=== PATIENT | female | born 1950 | race Caucasian/White ===

== ENCOUNTER 2023-07-22 11:20 | Emergency (ER) | payer MEDICARE, BC ==
[~2023-07-22] VITALS: Ht 162.6 cm; Wt 65.0 kg
[2023-07-22] MEDS: NS 500 ML IV ONE (11:56)
[2023-07-22 12:00] LABS: BASO # 0.1 10^3/uL (0.0-0.2); BASO % 0.8 % (0.0-1.0); EOS # 0.1 10^3/uL (0.0-0.5); EOS % 0.9 % (0.0-3.0); HEMATOCRIT 39.3 % (36.0-47.0); HEMOGLOBIN 13.3 g/dl (12.0-15.5); LYMPH # 1.4 10^3/uL (1.5-5.0); LYMPH % 20.5 % (24.0-44.0); MEAN CORPUSCULAR HGB CONC 33.8 g/dl (32.0-36.5); MEAN CORPUSCULAR VOLUME 91.6 fl (80.0-96.0); MONO # 0.4 10^3/uL (0.0-0.8); MONO % 6.5 % (2.0-8.0); NEUTROPHILS # 4.7 10^3/uL (1.5-8.5); NEUTROPHILS % 70.4 % (36.0-66.0); PLATELET COUNT, AUTOMATED 251 10^3/uL (150-450); RED BLOOD COUNT 4.29 10^6/uL (4.00-5.40); WHITE BLOOD COUNT 6.6 10^3/uL (4.0-10.0)
[2023-07-22] MEDS ORDERED: ISOVUE-370 76% 100ML VIAL As Ordered ONE (12:06)
[2023-07-22 12:12] LABS: INR 1.24; PARTIAL THROMBOPLASTIN TIME 35.2 SECONDS (24.8-34.2); PROTHROMBIN TIME 15.3 SECONDS (12.5-14.5)
[2023-07-22 12:32] LABS: LIPASE 46 U/L (12-53)
[2023-07-22 12:34] LABS: ALBUMIN 4.2 G/DL (3.2-5.2); ALKALINE PHOSPHATASE 92 U/L (46-116); ALT/SGPT 18 U/L (7.0-40); AMYLASE 51 U/L (30-118); AST/SGOT 14 U/L (<34); BILIRUBIN,DIRECT 0.2 MG/DL (<0.4); BILIRUBIN,TOTAL 0.7 MG/DL (0.3-1.2); BLOOD UREA NITROGEN 18 MG/DL (9-23); CALCIUM LEVEL 9.8 MG/DL (8.3-10.6); CARBON DIOXIDE LEVEL 27 MMOL/L (20-31); CHLORIDE LEVEL 104 MMOL/L (98-107); GLOMERULAR FILTRATION RATE > 60.0 (>39); GLUCOSE, FASTING 83 MG/DL (74-106); POTASSIUM SERUM 4.1 MMOL/L (3.5-5.1); SODIUM LEVEL 137 MMOL/L (136-145); TOTAL PROTEIN 7.4 G/DL (5.7-8.2)
[2023-07-22] MEDS ORDERED: MED REC IN PROGRESS XX SCH (12:55)
[2023-07-22 13:15] VITALS: BP 145/87; TEMP 98; O2SAT 97
[2023-07-22] MEDS: PERCOCET 5MG/325MG TAB PO ONE (13:24)
[2023-07-22] MEDS: ACETAMINOPHEN 325 MG TAB PO ONE (13:24)
[2023-07-22] MEDS ORDERED: PERC5TAB12 PO (13:25)
== END 2023-07-22 13:49 | disposition home or self-care (01) ==
LOC: M ED 11:20
DX: S30.0XXA Contusion of lower back and pelvis, initial encounter (principal); S06.0X0A Concussion without loss of consciousness, initial encounter; V29.1 Motorcycle passenger injured in collision with other and unspecified motor vehicles in nontraffic accident; Y92.9 Unspecified place or not applicable; Y93.9 Activity, unspecified; Y99.9 Unspecified external cause status; I45.19 Other right bundle-branch block; I45.81 Long QT syndrome; I48.91 Unspecified atrial fibrillation; Z87.891 Personal history of nicotine dependence; F10.10 Alcohol abuse, uncomplicated; Z88.8 Allergy status to other drugs, medicaments and biological substances; Z79.899 Other long term (current) drug therapy
CPT/HCPCS: 36415; 70450; 71045; 71260; 72125; 74177; 80047; 80048; 80076; 82150; 83690; 85025; 85610; 85730; 86850; 86900; 86901; 93005; 93041; 94760; 99284; Q9967

== ENCOUNTER 2023-08-25 16:49 | Inpatient (IN) | payer MEDICARE ==
[~2023-08-25] VITALS: Ht 160 cm; Wt 64.2 kg
[~2023-08-25 16:49] MED LIST: PERC5TAB12 PO
[2023-08-25] MEDS: NS 1,000 ML IV SCH ×2 (17:55→20:51)
[2023-08-25] MEDS: MORPHINE 4 MG/ML 1ML VIAL IV ONE ×2 (17:58→18:50)
[2023-08-25 18:00] LABS: BASO # 0.1 10^3/uL (0.0-0.2); BASO % 0.5 % (0.0-1.0); EOS % 0.4 % (0.0-3.0); HEMATOCRIT 36.4 % (36.0-47.0); HEMOGLOBIN 12.3 g/dl (12.0-15.5); LYMPH # 1.4 10^3/uL (1.5-5.0); LYMPH % 14.8 % (24.0-44.0); MEAN CORPUSCULAR HEMOGLOBIN 31.1 pg (27.0-33.0); MEAN CORPUSCULAR HGB CONC 33.8 g/dl (32.0-36.5); MEAN CORPUSCULAR VOLUME 91.9 fl (80.0-96.0); MONO # 0.4 10^3/uL (0.0-0.8); MONO % 4.5 % (2.0-8.0); NEUTROPHILS # 7.6 10^3/uL (1.5-8.5); PLATELET COUNT, AUTOMATED 218 10^3/uL (150-450); RED BLOOD COUNT 3.96 10^6/uL (4.00-5.40); WHITE BLOOD COUNT 9.6 10^3/uL (4.0-10.0)
[2023-08-25 18:16] LABS: INR 1.09; PARTIAL THROMBOPLASTIN TIME 32.3 SECONDS (24.8-34.2); PROTHROMBIN TIME 13.8 SECONDS (12.5-14.5)
[2023-08-25 18:33] LABS: ALBUMIN 3.9 G/DL (3.2-5.2); ALKALINE PHOSPHATASE 110 U/L (46-116); ALT/SGPT 21 U/L (7.0-40); AST/SGOT 22 U/L (<34); BILIRUBIN,DIRECT 0.1 MG/DL (<0.4); BILIRUBIN,TOTAL 0.5 MG/DL (0.3-1.2); BLOOD UREA NITROGEN 15 MG/DL (9-23); CALCIUM LEVEL 9.1 MG/DL (8.3-10.6); CARBON DIOXIDE LEVEL 22 MMOL/L (20-31); CHLORIDE LEVEL 101 MMOL/L (98-107); CK-MB VALUE MASS 1.2 NG/ML (<3.6); CREATININE FOR GFR 0.71 MG/DL (0.55-1.30); GLOMERULAR FILTRATION RATE > 60.0 (>39); GLUCOSE, FASTING 95 MG/DL (74-106); POTASSIUM SERUM 3.6 MMOL/L (3.5-5.1); SODIUM LEVEL 133 MMOL/L (136-145); TOTAL PROTEIN 6.9 G/DL (5.7-8.2)
[2023-08-25 18:35] LABS: CPK CREATINE PHOSPHOKINASE 91 U/L (34-145); MB/CK RELATIVE INDEX 1.31 (< OR =4)
[2023-08-25] MEDS: KETOROLAC 30 MG/ML 1ML VIAL IV ONE (19:17)
[2023-08-25] MEDS ORDERED: SYNT75TA PO (20:44)
[2023-08-25] MEDS ORDERED: METO1TAB87 PO (20:44)
[2023-08-25] MEDS ORDERED: DOFE250C PO (20:44)
[2023-08-25] MEDS: DOCUSATE SODIUM 100MG CAPSULE PO SCH (20:51)
[2023-08-25] MEDS: NORCO, ANEXSIA 5/325MG TABLET (HYDROcodone/ACETAMINOPHEN) PO PRN (20:52)
[2023-08-25] MEDS ORDERED: VITA250T27 PO (20:58)
[2023-08-25] MEDS ORDERED: VITA200010 PO (20:58)
[2023-08-25] MEDS ORDERED: XARELTO PO (20:58)
[2023-08-25] MEDS ORDERED: MED REC IN PROGRESS XX SCH (21:10)
[2023-08-25] MEDS: ONDANSETRON 4MG 2ML VIAL IV SCH (21:58)
[2023-08-25] MEDS: MORPHINE 4 MG/ML 1ML VIAL IV PRN (22:52)
[2023-08-25 23:30] VITALS: BP 166/87; TEMP 98.1; O2SAT 95
[2023-08-25] MEDS: MORPHINE 2 MG/ML 1ML VIAL IV ONE (23:54)
[2023-08-26 00:10] VITALS: BP 135/92; TEMP 98.2; O2SAT 95
[2023-08-26] MEDS: METOPROLOL TART 25 MG TABLET PO SCH ×2 (00:35→12:00)
[2023-08-26 01:23] LABS: ALBUMIN 3.5 G/DL (3.2-5.2); ALKALINE PHOSPHATASE 113 U/L (46-116); ALT/SGPT 20 U/L (7.0-40); AST/SGOT 18 U/L (<34); BILIRUBIN,TOTAL 0.8 MG/DL (0.3-1.2); BLOOD UREA NITROGEN 12 MG/DL (9-23); CALCIUM LEVEL 8.7 MG/DL (8.3-10.6); CARBON DIOXIDE LEVEL 24 MMOL/L (20-31); CHLORIDE LEVEL 105 MMOL/L (98-107); CREATININE FOR GFR 0.75 MG/DL (0.55-1.30); GLOMERULAR FILTRATION RATE > 60.0 (>39); GLUCOSE, FASTING 106 MG/DL (74-106); MAGNESIUM LEVEL 1.7 MG/DL (1.8-2.4); SODIUM LEVEL 135 MMOL/L (136-145); TOTAL PROTEIN 6.3 G/DL (5.7-8.2)
[2023-08-26] MEDS: ACETAMINOPHEN TAB 650MG DOSE (2X325MG) PO PRN (02:05)
[2023-08-26] MEDS ORDERED: MORPHINE 4 MG/ML 1ML VIAL IV PRN (02:30)
[2023-08-26 03:40] VITALS: BP 127/72; TEMP 97.5; O2SAT 95
[2023-08-26] MEDS: MAG SULF 1GM/100ML (MAG RUN) 1 GM in IV 1 EA IV ONE (03:55)
[2023-08-26 04:10] VITALS: BP 122/86; TEMP 97.7; O2SAT 94
[2023-08-26] MEDS: LEVOTHYROXINE 75MCG TABLET (0.075MG) PO SCH (06:09)
[2023-08-26 07:01] LABS: HEMATOCRIT 37.6 % (36.0-47.0); HEMOGLOBIN 12.9 g/dl (12.0-15.5); MEAN CORPUSCULAR HEMOGLOBIN 31.2 pg (27.0-33.0); MEAN CORPUSCULAR HGB CONC 34.3 g/dl (32.0-36.5); PLATELET COUNT, AUTOMATED 188 10^3/uL (150-450); RED BLOOD COUNT 4.13 10^6/uL (4.00-5.40); WHITE BLOOD COUNT 9.1 10^3/uL (4.0-10.0)
[2023-08-26 07:25] LABS: ALBUMIN 3.3 G/DL (3.2-5.2); ALKALINE PHOSPHATASE 120 U/L (46-116); ALT/SGPT 17 U/L (7.0-40); AST/SGOT 15 U/L (<34); BILIRUBIN,TOTAL 1.4 MG/DL (0.3-1.2); BLOOD UREA NITROGEN 13 MG/DL (9-23); CALCIUM LEVEL 8.8 MG/DL (8.3-10.6); CARBON DIOXIDE LEVEL 25 MMOL/L (20-31); CHLORIDE LEVEL 105 MMOL/L (98-107); CREATININE FOR GFR 0.75 MG/DL (0.55-1.30); GLOMERULAR FILTRATION RATE > 60.0 (>39); GLUCOSE, FASTING 109 MG/DL (74-106); POTASSIUM SERUM 4.1 MMOL/L (3.5-5.1); SODIUM LEVEL 136 MMOL/L (136-145); TOTAL PROTEIN 6.1 G/DL (5.7-8.2)
[2023-08-26] MEDS ORDERED: ONDANSETRON 4MG 2ML VIAL IV PRN (08:45)
[2023-08-26] MEDS: ASCORBIC ACID 250 MG TAB PO SCH (08:51)
[2023-08-26] MEDS ORDERED: ENTER DRUG NAME HERE (PATIENT'S OWN MED) PO SCH (09:00)
[2023-08-26] MEDS: SENNA 8.6 MG TAB (SENOKOT) PO SCH (09:00)
[2023-08-26] MEDS: KETOROLAC 30 MG/ML 1ML VIAL IV PRN (09:05)
[2023-08-26] MEDS: MORPHINE 4 MG/ML 1ML VIAL IV PRN (09:24)
[2023-08-26] MEDS ORDERED: XARE20TA PO (10:11)
[2023-08-26] MEDS ORDERED: HOME MED LIST COMPLETE! XX SCH (10:15)
[2023-08-26 12:00] VITALS: BP 126/80; TEMP 97.9; O2SAT 95
[2023-08-26 12:05] LABS: CK-MB VALUE MASS 1.8 NG/ML (<3.6)
[2023-08-26 12:06] LABS: MB/CK RELATIVE INDEX 1.16 (< OR =4)
[2023-08-26] MEDS: PANTOPRAZOLE 40MG VIAL IV SCH (12:25)
[2023-08-26] MEDS: ENOXAPARIN 40MG/0.4ML SYRINGE (J1650 PER 10MG) SC SCH (12:34)
[2023-08-26 15:32] LABS: CK-MB VALUE MASS 1.6 NG/ML (<3.6)
[2023-08-26 15:34] LABS: MB/CK RELATIVE INDEX 1.06 (< OR =4)
[2023-08-26 20:00] VITALS: BP 118/68; TEMP 98.1; O2SAT 94
[2023-08-26] MEDS: DOFETILIDE 250 MCG PO SCH (20:39)
[2023-08-27] VITALS (8 sets, daily range): BP systolic 107–134; BP diastolic 63–81; TEMP 97.5–98.2; O2SAT 91–96
[2023-08-27 06:30] LABS: BASO # 0.1 10^3/uL (0.0-0.2); BASO % 0.6 % (0.0-1.0); EOS # 0.2 10^3/uL (0.0-0.5); EOS % 2.5 % (0.0-3.0); HEMOGLOBIN 11.2 g/dl (12.0-15.5); MEAN CORPUSCULAR HEMOGLOBIN 31.1 pg (27.0-33.0); MEAN CORPUSCULAR HGB CONC 33.9 g/dl (32.0-36.5); MEAN CORPUSCULAR VOLUME 91.7 fl (80.0-96.0); MONO # 0.5 10^3/uL (0.0-0.8); MONO % 5.5 % (2.0-8.0); NEUTROPHILS # 7.9 10^3/uL (1.5-8.5); PLATELET COUNT, AUTOMATED 177 10^3/uL (150-450); WHITE BLOOD COUNT 9.8 10^3/uL (4.0-10.0)
[2023-08-27 07:04] LABS: BLOOD UREA NITROGEN 17 MG/DL (9-23); CALCIUM LEVEL 8.3 MG/DL (8.3-10.6); CARBON DIOXIDE LEVEL 23 MMOL/L (20-31); CHLORIDE LEVEL 104 MMOL/L (98-107); CREATININE FOR GFR 0.82 MG/DL (0.55-1.30); GLOMERULAR FILTRATION RATE > 60.0 (>39); GLUCOSE, FASTING 110 MG/DL (74-106); POTASSIUM SERUM 4.2 MMOL/L (3.5-5.1); SODIUM LEVEL 134 MMOL/L (136-145)
[2023-08-27] MEDS ORDERED: KETOROLAC 60MG 2ML VIAL As Ordered ONE (10:12)
[2023-08-27] MEDS ORDERED: ACETAMINOPHEN 1000MG 100ML IV BAG As Ordered ONE (11:42)
[2023-08-27] MEDS ORDERED: propofoL 200 MG/20 ML VIAL As Ordered ONE (11:44)
[2023-08-27] MEDS ORDERED: LIDOCAINE 2% 100MG/5ML SDV (FOR ANES.) As Ordered ONE (11:45)
[2023-08-27] MEDS ORDERED: SUGAMMADEX SODIUM 500 MG/5 ML VIAL (BRIDION) As Ordered ONE (11:45)
[2023-08-27] MEDS ORDERED: ROCURONIUM BROMIDE 50MG/5ML VIAL As Ordered ONE (11:45)
[2023-08-27] MEDS ORDERED: ONDANSETRON 4MG 2ML VIAL As Ordered ONE (11:45)
[2023-08-27] MEDS ORDERED: MIDAZOLAM INJ 2MG/2ML VIAL As Ordered ONE (11:48)
[2023-08-27] MEDS ORDERED: fentaNYL 100 MCG/2 ML INJECTION As Ordered ONE (11:49)
[2023-08-27] MEDS: ceFAZolin 2 GM/D5W 50 ML IV BAG As Ordered ONE (12:50)
[2023-08-27] MEDS: TRANEXAMIC ACID 100 MG/ML 10ML VIAL As Ordered ONE (12:55)
[2023-08-27] MEDS ORDERED: HYDROmorphone HCL 2MG/ML 1ML VIAL As Ordered ONE (13:02)
[2023-08-27] MEDS ORDERED: ONDANSETRON 4MG 2ML VIAL IV PRN (14:55)
[2023-08-27] MEDS ORDERED: SENNA 8.6 MG TAB (SENOKOT) PO PRN (14:55)
[2023-08-27] MEDS: LR 1,000 ML IV SCH (15:53)
[2023-08-27] MEDS: FERROUS SULFATE 325MG TAB PO SCH (15:53)
[2023-08-27] MEDS: ACETAMINOPHEN TAB 650MG DOSE (2X325MG) PO SCH (17:09)
[2023-08-27] MEDS: ceFAZolin SOD 2 GM in IV 1 EA IV SCH (20:49)
[2023-08-27] MEDS ORDERED: DOCUSATE SODIUM 100MG CAPSULE PO SCH (21:00)
[2023-08-28 00:45] VITALS: BP 121/71; TEMP 97.9; O2SAT 96
[2023-08-28 04:00] VITALS: BP 121/72; TEMP 97.7; O2SAT 91
[2023-08-28] MEDS: oxyCODONE 5MG TAB PO PRN ×2 (07:25→16:59)
[2023-08-28 07:49] VITALS: BP 123/72; TEMP 97.9; O2SAT 94
[2023-08-28 07:54] LABS: BASO % 0.2 % (0.0-1.0); HEMATOCRIT 27.4 % (36.0-47.0); HEMOGLOBIN 9.5 g/dl (12.0-15.5); LYMPH # 0.5 10^3/uL (1.5-5.0); LYMPH % 4.6 % (24.0-44.0); MEAN CORPUSCULAR HEMOGLOBIN 31.1 pg (27.0-33.0); MEAN CORPUSCULAR HGB CONC 34.7 g/dl (32.0-36.5); MEAN CORPUSCULAR VOLUME 89.8 fl (80.0-96.0); MONO # 0.7 10^3/uL (0.0-0.8); MONO % 5.9 % (2.0-8.0); NEUTROPHILS # 10.5 10^3/uL (1.5-8.5); NEUTROPHILS % 88.6 % (36.0-66.0); PLATELET COUNT, AUTOMATED 160 10^3/uL (150-450); RED BLOOD COUNT 3.05 10^6/uL (4.00-5.40); WHITE BLOOD COUNT 11.9 10^3/uL (4.0-10.0)
[2023-08-28 08:30] LABS: ALBUMIN 2.9 G/DL (3.2-5.2); ALKALINE PHOSPHATASE 99 U/L (46-116); ALT/SGPT 18 U/L (7.0-40); AST/SGOT 27 U/L (<34); BILIRUBIN,TOTAL 0.7 MG/DL (0.3-1.2); BLOOD UREA NITROGEN 15 MG/DL (9-23); CALCIUM LEVEL 8.9 MG/DL (8.3-10.6); CARBON DIOXIDE LEVEL 25 MMOL/L (20-31); CHLORIDE LEVEL 104 MMOL/L (98-107); CREATININE FOR GFR 0.74 MG/DL (0.55-1.30); GLOMERULAR FILTRATION RATE > 60.0 (>39); GLUCOSE, FASTING 119 MG/DL (74-106); POTASSIUM SERUM 4.3 MMOL/L (3.5-5.1); SODIUM LEVEL 136 MMOL/L (136-145); TOTAL PROTEIN 5.6 G/DL (5.7-8.2)
[2023-08-28] MEDS: ASCORBIC ACID 500 MG TAB PO SCH (08:35)
[2023-08-28] MEDS: CEFDINIR 300 MG CAP (OMNICEF) PO SCH (09:59)
[2023-08-28] MEDS: MAGNESIUM OXIDE 400MG TAB (MAG-OX) PO SCH (09:59)
[2023-08-28] MEDS: MAG SULF 1GM/100ML (MAG RUN) 1 GM in IV 1 EA IV ONE (09:59)
[2023-08-28 12:21] VITALS: BP 114/72; TEMP 97.5; O2SAT 97
[2023-08-28 15:59] VITALS: BP 119/64; TEMP 98.1; O2SAT 94
[2023-08-28 17:00] VITALS: BP 120/65
[2023-08-28] MEDS: RIVAROXABAN 20MG TAB (XARELTO) PO SCH (17:00)
[2023-08-28] MEDS ORDERED: ASCO50TA PO (17:29)
[2023-08-28] MEDS ORDERED: FERR1TAB8 PO (17:29)
[2023-08-28] MEDS ORDERED: OXYC-517 PO (17:29)
[2023-08-28] MEDS ORDERED: ACET1TAB55 PO (17:29)
[2023-08-28] MEDS ORDERED: CEFD300CAP PO (17:29)
[2023-08-28] MEDS ORDERED: MAGN400T2 PO (17:29)
[2023-08-28] MEDS ORDERED: SENN-23 PO (17:29)
== END 2023-08-28 19:15 | disposition home or self-care (01) | DRG 522 ==
LOC: M ED 16:49 → M ED INP 20:20 → M MSPAV 22:40
PROVIDERS: ADMIT Preventive Medicine Undersea and Hyperbaric Medicine; ATTEND Internal Medicine Nephrology
PROC: 0SRB0JZ Replacement of Left Hip Joint with Synthetic Substitute, Open Approach (ICD-10-PCS; principal; 2023-08-27 08:30)
DX: S72.002A Fracture of unspecified part of neck of left femur, initial encounter for closed fracture (principal); I48.20 Chronic atrial fibrillation, unspecified; W01.0XXA Fall on same level from slipping, tripping and stumbling without subsequent striking against object, initial encounter; Z96.651 Presence of right artificial knee joint; I49.5 Sick sinus syndrome; E03.9 Hypothyroidism, unspecified; M17.12 Unilateral primary osteoarthritis, left knee; M85.88 Other specified disorders of bone density and structure, other site; Z90.79 Acquired absence of other genital organ(s); Z85.3 Personal history of malignant neoplasm of breast; Z92.21 Personal history of antineoplastic chemotherapy; Z79.01 Long term (current) use of anticoagulants; Z79.890 Hormone replacement therapy; Z90.13 Acquired absence of bilateral breasts and nipples; Z79.899 Other long term (current) drug therapy; Z95.0 Presence of cardiac pacemaker; Y92.9 Unspecified place or not applicable; Y93.9 Activity, unspecified

== ENCOUNTER → 2023-09-06 | Outpatient (CLI) | payer MEDICARE ==
[~2023-09-06] MED LIST changes: +ACET1TAB55 PO; +ASCO50TA PO; +CEFD300CAP PO; +DOFE250C PO; +FERR1TAB8 PO; +MAGN400T2 PO; +METO1TAB87 PO; +OXYC-517 PO; +SENN-23 PO; +SYNT75TA PO; +VITA200010 PO; +VITA250T27 PO; +XARE20TA PO; +XARELTO PO
== END ==
LOC: M SOG 07:51
PROVIDERS: ATTEND Orthopaedic Surgery
DX: Z47.1 Aftercare following joint replacement surgery (principal)

== ENCOUNTER → 2023-10-18 | Outpatient (CLI) | payer MEDICARE | LOC: M SOG 07:57 | PROVIDERS: ATTEND Orthopaedic Surgery | DX: S72.002D Fracture of unspecified part of neck of left femur, subsequent encounter for closed fracture with routine healing (principal) ==

== ENCOUNTER → 2024-09-11 | Outpatient (CLI) | payer MEDICARE | LOC: M SOG 07:29 | PROVIDERS: ATTEND Orthopaedic Surgery | DX: Z96.642 Presence of left artificial hip joint (principal) ==